=== PATIENT | female | born 1945 | race Two or more races ===

== ENCOUNTER 2020-03-11 11:35 | Day surgery (SDC) | payer MEDICARE ==
[~2020-03-11] VITALS: Ht 167.6 cm; Wt 70.0 kg
[2020-03-11 12:39] VITALS: BP 159/79
[2020-03-11] MEDS ORDERED: NALOXONE 1 MG/ML, 2ML ONE (13:08)
[2020-03-11] MEDS ORDERED: FENTANYL PF 100 MCG/2ML ONE (13:08)
[2020-03-11] MEDS ORDERED: FLUMAZENIL 0.1 MG/1 ML, 5ML ONE (13:08)
[2020-03-11] MEDS ORDERED: MIDAZOLAM 1 MG/ML, 5ML ONE (13:08)
[2020-03-11 13:48] LABS: MEAN CORPUSCULAR HEMOGLOBIN 16.1 pg (27.0-34.8); MEAN PLATELET VOLUME 8.4 fL (7.4-10.4); PLATELET COUNT 428 x10^3/uL (130-400); RED BLOOD COUNT 5.99 x10^6/uL (3.82-5.3)
[2020-03-11 14:28] LABS: MEAN CORPUSCULAR HGB CONC 26.9 g/dL (32.4-35.8)
[2020-03-11 14:34] LABS: MD YES
[2020-03-11 14:39] LABS: BASOS#(MANUAL) 0.24 x10^3/uL (0-0.1); BASOS% (MANUAL) 1 % (0-1); EOS#(MANUAL) 0.49 x10^3/uL (0.0-0.4); EOS% (MANUAL) 2 % (1-7); LYMPH#(MANUAL) 2.92 x10^3/uL (1-3.4); LYMPHS% (MANUAL) 12 % (22-44); MONOS#(MANUAL) 1.22 x10^3/uL (0.3-2.7); MONOS% (MANUAL) 5 % (2-9); SEGS% (MANUAL) 80 % (42-75)
[2020-03-11 14:40] LABS: ANISOCYTOSIS 2+; HYPOCHROMIA 2+; MICROCYTOSIS 2+; OVALOCYTES 1+
[2020-03-11 14:42] LABS: TEAR DROPS 1+
[2020-03-11 14:43] LABS: SCHISTOCYTES 1+
[2020-03-11 14:44] LABS: <PLATELET ESTIMATE> INCREASED; <PLT MORPHOLOGY> NORMAL PLT MORPH; POLYCHROMASIA 1+
== END 2020-03-11 15:05 | disposition home or self-care (01) ==
LOC: OUT 11:35
PROVIDERS: ATTEND Internal Medicine Hematology & Oncology
DX: D47.3 Essential (hemorrhagic) thrombocythemia (principal); D72.829 Elevated white blood cell count, unspecified; D50.8 Other iron deficiency anemias; D72.828 Other elevated white blood cell count; Z79.899 Other long term (current) drug therapy; Z88.0 Allergy status to penicillin
CPT/HCPCS: 36415; 38222; 77012; 85025; 85060; 85097; 88237; 88264; 88280; 88305; 88311; 88313; 88341; 88342; 88360; 99156; 99157; J2250; J3010; J2310

== ENCOUNTER → 2020-03-13 | Outpatient (CLI) | payer MEDICARE | END | disposition home or self-care (01) | LOC: EDSEX → CFH 09:34 | PROVIDERS: ATTEND Internal Medicine Hematology & Oncology | DX: K80.20 Calculus of gallbladder without cholecystitis without obstruction (principal); N20.0 Calculus of kidney; R16.1 Splenomegaly, not elsewhere classified; D45 Polycythemia vera; D50.9 Iron deficiency anemia, unspecified | CPT/HCPCS: 76700 ==